=== PATIENT | male | born 1970 | race Caucasian/White ===

== ENCOUNTER 2016-12-30 12:17 | Emergency (ER) | payer OTHER ==
[~2016-12-30] VITALS: Ht 175.3 cm; Wt 86.2 kg
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
[2016-12-30] MEDS ORDERED: CYCLOBENZAPRINE5 M2 PO (13:38)
[2016-12-30 13:43] VITALS: BP 124/79
== END 2016-12-30 13:43 ==
LOC: ERH 12:17
DX: S16.1XXA Strain of muscle, fascia and tendon at neck level, initial encounter (principal); S39.012A Strain of muscle, fascia and tendon of lower back, initial encounter; V89.2XXA Person injured in unspecified motor-vehicle accident, traffic, initial encounter; Y92.481 Parking lot as the place of occurrence of the external cause